=== PATIENT | male | born 1990 | race Hispanic/Latino ===

== ENCOUNTER 2023-08-08 15:44 | Emergency (ER) | payer OTHER ==
[~2023-08-08] VITALS: Ht 175.3 cm; Wt 93.5 kg
[2023-08-08] MEDS ORDERED: FAMO40TA3 (15:57)
[2023-08-08] MEDS ORDERED: KETO2CR (15:57)
[2023-08-08] MEDS: METOCLOPRAMIDE INJ 10MG/2ML VIAL IV ONE (18:53)
[2023-08-08] MEDS: KETOROLAC 30 MG/ML 1ML VIAL IV ONE (18:53)
[2023-08-08] MEDS: NS 1,000 ML IV ONE (18:54)
[2023-08-08 18:59] LABS: HEMATOCRIT 47.2 % (42.0-52.0); HEMOGLOBIN 16.3 g/dl (13.5-17.5); MEAN CORPUSCULAR HEMOGLOBIN 29.6 pg (27.0-33.0); MEAN CORPUSCULAR HGB CONC 34.5 g/dl (32.0-36.5); MEAN CORPUSCULAR VOLUME 85.8 fl (80.0-96.0); PLATELET COUNT, AUTOMATED 298 10^3/uL (150-450); WHITE BLOOD COUNT 9.6 10^3/uL (4.0-10.0)
[2023-08-08 19:26] LABS: BLOOD UREA NITROGEN 13 MG/DL (9-23); CALCIUM LEVEL 10.2 MG/DL (8.5-10.1); CARBON DIOXIDE LEVEL 26 MMOL/L (20-31); CHLORIDE LEVEL 104 MMOL/L (98-107); CREATININE FOR GFR 0.98 MG/DL (0.70-1.30); GLOMERULAR FILTRATION RATE > 60.0 (>60); GLUCOSE, FASTING 91 MG/DL (60-100); POTASSIUM SERUM 4.3 MMOL/L (3.5-5.1); SODIUM LEVEL 140 MMOL/L (136-145)
[2023-08-08 20:09] VITALS: BP 119/72; TEMP 97.7; O2SAT 98
== END 2023-08-08 20:15 | disposition home or self-care (01) ==
LOC: M ED 15:44
DX: R51.9 Headache, unspecified (principal)
CPT/HCPCS: 70450; 80048; 85027; 96361; 96374; 96375; 99284; J1885; J2765